=== PATIENT | male | born 1975 | race Hispanic/Latino ===

== ENCOUNTER 2018-02-24 09:41 | Outpatient (CLI) | payer OTHER ==
[2018-02-24] MEDS ORDERED: XYLOCAINE TOPICAL 4% TP ONE (10:11)
[2018-02-24] MEDS ORDERED: NACL 0.9% 500 ML IR ONE (10:11)
[2018-02-24] MEDS ORDERED: NACL 0.9% IR PRN (13:54)
== END 2018-02-24 09:42 | disposition home or self-care (01) ==
LOC: WOUND 09:41
PROVIDERS: ATTEND Surgery
DX: L97.112 Non-pressure chronic ulcer of right thigh with fat layer exposed (principal); L97.122 Non-pressure chronic ulcer of left thigh with fat layer exposed; E83.59 Other disorders of calcium metabolism; K70.31 Alcoholic cirrhosis of liver with ascites; I12.0 Hypertensive chronic kidney disease with stage 5 chronic kidney disease or end stage renal disease; N18.6 End stage renal disease; E78.5 Hyperlipidemia, unspecified; Z87.891 Personal history of nicotine dependence
CPT/HCPCS: 99215; G0463

== ENCOUNTER 2018-02-24 12:28 | Outpatient (CLI) | payer OTHER ==
[2018-02-24 13:36] LABS: Basophils # (Auto) 0.1 K/mm3 (0.0-0.1); Basophils % (Auto) 0.7 % (0.0-1.8); Eosinophils # (Auto) 0.3 K/mm3 (0.0-0.4); Eosinophils % (Auto) 2.3 % (0.0-4.3); Hematocrit 25.4 % (35.5-45.6); Hemoglobin 8.5 gm/dl (11.8-15.2); Lymphocytes # (Auto) 3.2 K/mm3 (1.2-5.4); Lymphocytes % (Auto) 21.3 % (13.4-35.0); Mean Corpuscular HGB Conc 33 % (32-34); Mean Corpuscular Hemoglobin 33 pg (28-32); Mean Corpuscular Volume 98 fl (84-94); Monocytes # (Auto) 2.2 K/mm3 (0.0-0.8); Monocytes % (Auto) 14.6 % (0.0-7.3); Platelet Count 113 K/mm3 (140-440); Red Blood Count 2.59 M/mm3 (3.65-5.03); Red Cell Distribution Width 17.4 % (13.2-15.2)
[2018-02-24 13:46] LABS: INR 1.86 (0.87-1.13)
[2018-02-24 13:47] LABS: Albumin 2.8 g/dL (3.9-5); Calcium 8.7 mg/dL (8.4-10.2); Partial Thromboplastin Time 48.5 Sec. (24.2-36.6)
== END 2018-02-24 12:29 | disposition home or self-care (01) ==
LOC: LAB 12:28
PROVIDERS: ATTEND Surgery
DX: L97.112 Non-pressure chronic ulcer of right thigh with fat layer exposed (principal); N18.6 End stage renal disease; K70.31 Alcoholic cirrhosis of liver with ascites; Z88.0 Allergy status to penicillin; Z88.6 Allergy status to analgesic agent
CPT/HCPCS: 36415; 80053; 85025; 85610; 85730